=== PATIENT | female | born 1990 | race Caucasian/White ===

== ENCOUNTER 2020-09-14 17:36 | Emergency (ER) | payer OTHER, SELFPAY ==
[2020-09-14 17:45] VITALS: BP 144/86; PULSE 124; RESP 22; TEMP 36.8; O2SAT 98
--- NOTE | 2020-09-14 17:53 | DI.RAD.S_ITS ---
PROCEDURE: XR CHEST 1V INDICATIONS: Shortness of breath TECHNIQUE: One view of the chest was acquired. COMPARISON: None. FINDINGS: Surgical changes and devices: None. Lungs and pleura: Lungs are clear. No pleural effusions or pneumothorax. Mediastinum: Mediastinal contours appear normal. Heart size is normal. Bones and chest wall: No suspicious bony lesions. Overlying soft tissues appear unremarkable. IMPRESSION: The inspiratory volume is reduced and the lungs are clear considering this circumstance. However, it is possible that a mild alveolar infiltration pattern is superimposed. Dictated by: Aj Pelayo M.D. on 09/14/2020 at 18:39 Approved by: Aj Pelayo M.D. on 09/14/2020 at 18:40
--- NOTE | 2020-09-14 18:02 | ED.SOB ---
HPI - SOB/Dyspnea General Chief Complaint: Shortness of Breath/Dyspnea Stated Complaint: Procedure Done Wed/SOB, High Resting HR Time Seen by Provider: 09/14/20 17:52 Source: patient Mode of arrival: Ambulatory Limitations: no limitations History of Present Illness HPI Narrative: 30F nonsmoker with a history of kidney stones presents with the chief complaint of a sudden onset shortness of breath, chest discomfort, and rapid heart rate. She becomes more short of breath with minimal exertion and cannot complete a sentence. She had a ureteral stent placed at [facility] 5 days ago. She denies any history of blood clot or cancer. She uses control but it is Mirena. She denies fever or chills. She's had a mild dry cough. She denies fever or chills. She denies pain or swelling in either leg. She states the chest discomfort is very vague and cannot pinpoint a location. She states all of her symptoms started together. Her pain is mild and diffuse and not worsened with exertion, motion, or deep breath. MD Complaint: shortness of breath, cough and chest pain Onset (ago): hour(s) Context: other Severity: moderate Consistency/Duration: constant Relieving factors: nothing Exacerbating factors: exertion Known history of: other Associated symptoms: chest pain Treatment prior to arrival: none Related Data Home oxygen amount: none Review of Systems Constitutional Constitutional: Denies chills, Denies fatigue, Denies fever(s), Denies frequent falls, Denies lethargy and Denies weakness Eyes Eyes: Denies change in vision, Denies eye discharge, Denies irritation and Denies loss of vision ENT Ears, Nose, Mouth, and Throat: Denies change in voice, Denies dizziness, Denies neck pain, Denies sore throat and Denies throat swelling Cardiovascular Cardiovascular: Denies chest pain, Reports rapid heart rate, Reports lightheadedness, Reports palpitations, Reports dyspnea, Reports dyspnea on exertion and Denies orthopnea Respiratory Respiratory: Denies cough, Reports dyspnea, Reports dyspnea on exertion and Denies wheezing Gastrointestinal Gastrointestinal: Denies abdominal pain, Denies change in bowel habits, Denies diarrhea, Denies nausea and Denies vomiting Musculoskeletal Musculoskeletal: Denies neck pain and Denies numbness Integumentary/Breasts Skin/Breast: Denies pruritus, Denies erythema, Denies rash and Denies wounds Neurologic Neurologic: Denies behavioral changes, Denies confusion, Denies dizziness, Denies frequent falls, Denies loss of vision, Denies numbness and Denies weakness Psychiatric Psychiatric: Denies anxiety, Denies behavioral changes, Denies confusion, Denies depression, Denies homicidal ideation and Denies suicidal ideation Endocrine Endocrine: Denies fatigue, Denies flushing and Reports palpitations Hematologic/Lymphatic Hematologic/Lymphatic: Denies easy bruising Allergic/Immunologic Allergic/Immunologic: Denies urticaria, Denies throat swelling and Denies wheezing Patient History Social History Smoking Status: Never smoker Smoking Status: Never smoker alcohol intake frequency: 0-2 drinks per day Substance Use Type: does not use Exam Narrative Exam Narrative: GENERAL: [30] year old patient appears stated age. Well-nourished, well-developed patient, in moderate distress. Breathless, conversational dyspnea, speaking 4-5 word sentences HEAD: Atraumatic. Normocephalic. EYES: Pupils equal round and reactive. Extraocular motions intact. No scleral icterus. No injection or drainage. ENT: Nose without bleeding, purulent drainage. Throat without erythema, tonsillar hypertrophy or exudate. Airway patent. NECK: Trachea midline. Non tender CARDIOVASCULAR: Tachycardic but regular without murmurs, gallops, or rubs. RESPIRATORY: Clear to auscultation. Breath sounds equal bilaterally. No wheezes, rales, or rhonchi. Tachypnea, increased work of breathing. GASTROINTESTINAL: Abdomen soft, non-tender, nondistended. EXTREMITIES: No edema or joint tenderness. BACK: Nontender without deformity or crepitance. No flank tenderness. NEURO: AOx3. SKIN: No rash or erythema of visible areas Initial Vital Signs Initial Vital Signs: Vital Signs Temperature 98.2 F 09/14/20 17:45 Pulse Rate 124 H 09/14/20 17:45 Respiratory Rate 22 09/14/20 17:45 Blood Pressure 144/86 H 09/14/20 17:45 Pulse Oximetry 98 09/14/20 17:45 Course Orders Ordered: ED Orders 09/14/20 17:52 Complete Blood Count AUTO DIFF Stat Comprehensive Metabolic Panel Stat D Dimer Stat Lactate (Lactic Acid) Stat Lipase Stat Procalcitonin Stat 09/14/20 17:53 XR chest 1V Stat Test Urine Stat Urinalysis and Microscopic Stat EKG-12 Lead Stat 09/14/20 18:24 Blood Culture Stat 09/14/20 18:25 COVID19 Stat 09/14/20 18:26 CT angio chest PE protocol Stat Discontinued Medications Sodium Chloride (Normal Saline 0.9%) 1,000 mls @ 1,000 mls/hr IV BOLUS ONE Stop: 09/14/20 18:51 Last Admin: 09/14/20 18:24 Dose: 1,000 mls/hr Documented by: VANDANA Reevaluation(s) Reevaluation #1: HR down to the 110s with fluid, minimal improvement in dyspnea Despite negative dimer her story and presentation are highly suspiscious for PE and after discussion with patient regarding risks and benefits we agree that the risk of CTA (radiation, IV contrast, cost) is heavily outweighed by the benefit of potentially diagnosing a life threatening condition such as PE or pericardial effusion. She understands this risk and agrees with CT. Reevaluation #2: patient feeling significant improvement after fluids. HR down to the upper 80s. No further dyspnea or significant work of breathing Vital Signs Vital signs: Vital Signs - 8 hr 09/14/20 17:45 09/14/20 18:27 09/14/20 18:30 Temperature 98.2 F Pulse Rate 124 H 104 H 98 H Respiratory Rate 22 Blood Pressure 144/86 H Pulse Oximetry 98 96 98 MDM - SOB/Dyspnea Lab Data Result diagrams: 09/14/20 17:52 09/14/20 17:52 Labs: Lab Results 09/14/20 09/14/20 09/14/20 Range/Units 17:52 17:52 17:52 WBC 7.4 (4.5-11.0) X10^3/uL RBC 4.45 (4.0-5.2) X10^6/uL Hgb 13.7 (12.0-16.0) g/dL Hct 40.2 (36-46) % MCV 90.3 (80-100) fL MCH 30.7 (26-34) PG MCHC 34.0 (30-36) % RDW 12.6 (11.6-14.8) % Plt Count 324 (150-400) X10^3/uL Neut % (Auto) 64.9 (50-75) % Lymph % (Auto) 25.7 (25-40) % [place] % (Auto) 7.1 (3-14) % Eos % (Auto) 1.3 L (2-4) % Baso % (Auto) 1.0 (0-2) % Neut # (Auto) 4800 (1153-2771) /uL Lymph # (Auto) 1900 (2191-9644) /uL [place] # (Auto) 500 (0-900) /uL Eos # (Auto) 100 (0-450) /uL Baso # (Auto) 100 (0-100) /uL D-Dimer (<230) ng/mL Sodium 137 (137-145) mmol/L Potassium 3.9 (3.4-5.1) mmol/L Chloride 102 (98-107) mmol/L Carbon Dioxide 31 (22-32) mmol/L BUN 13 (7-17) mg/dL Creatinine 0.76 (0.52-1.04) mg/dL Estimated GFR > 60.0 (>60) mL/min BUN/Creatinine Ratio 17.1 (6-22) Glucose 122 H (70-100) mg/dL Lactate (0.7-2.1) mmol/L Calcium 9.3 (8.4-10.2) mg/dL Total Bilirubin 0.3 (0.2-1.3) mg/dL AST 23 (14-36) IU/L ALT 12 (<35) IU/L Alkaline Phosphatase 49 (38-126) U/L Total Protein 7.2 (6.3-8.2) g/dL Albumin 4.1 (3.5-5.0) g/dL Globulin 3.1 (1.7-4.1) g/dL Albumin/Globulin Ratio 1.3 (1.0-2.8) Lipase 39 (23-300) U/L Procalcitonin < 0.05 (<0.5) ng/mL SARS-CoV-2 (PCR) (Negative) 09/14/20 09/14/20 09/14/20 Range/Units 17:52 17:52 18:25 WBC (4.5-11.0) X10^3/uL RBC (4.0-5.2) X10^6/uL Hgb (12.0-16.0) g/dL Hct (36-46) % MCV (80-100) fL MCH (26-34) PG MCHC (30-36) % RDW (11.6-14.8) % Plt Count (150-400) X10^3/uL Neut % (Auto) (50-75) % Lymph % (Auto) (25-40) % [place] % (Auto) (3-14) % Eos % (Auto) (2-4) % Baso % (Auto) (0-2) % Neut # (Auto) (5169-0718) /uL Lymph # (Auto) (2269-8011) /uL [place] # (Auto) (0-900) /uL Eos # (Auto) (0-450) /uL Baso # (Auto) (0-100) /uL D-Dimer 221 (<230) ng/mL Sodium (137-145) mmol/L Potassium (3.4-5.1) mmol/L Chloride (98-107) mmol/L Carbon Dioxide (22-32) mmol/L BUN (7-17) mg/dL Creatinine (0.52-1.04) mg/dL Estimated GFR (>60) mL/min BUN/Creatinine Ratio (6-22) Glucose (70-100) mg/dL Lactate 1.6 (0.7-2.1) mmol/L Calcium (8.4-10.2) mg/dL Total Bilirubin (0.2-1.3) mg/dL AST (14-36) IU/L ALT (<35) IU/L Alkaline Phosphatase (38-126) U/L Total Protein (6.3-8.2) g/dL Albumin (3.5-5.0) g/dL Globulin (1.7-4.1) g/dL Albumin/Globulin Ratio (1.0-2.8) Lipase (23-300) U/L Procalcitonin (<0.5) ng/mL SARS-CoV-2 (PCR) Negative (Negative) Imaging Data CT scan - chest: Radiologist's Impression: [address] [id number] Scan ReportSigned Patient: Yolanda Narvaez EMR#: [id number]: 1990Acct:[id number]/Sex: te of Service: 09/14/20Loc: EDAccession Number: [id number] Procedure: CT angio chest PE protocol Ordering Provider: Wander Das D.O. PROCEDURE: CT ANGIO CHEST PE PROTOCOL INDICATIONS: sudden SOB, tachycardia, recent procedure TECHNIQUE: After the administration of intravenous contrast, 2 mm thick sections acquired from the pulmonary apices to the posterior costophrenic angles. 3-dimensional maximum intensity projection (MIP) coronal and sagittal reformats were then acquired through the thorax. For radiation dose reduction, the following was used: automated exposure control, adjustment of mA and/or kV according to patient size. COMPARISON: [facility], , XR CHEST 1V, 09/14/2020, 18:03. FINDINGS: Image quality: Excellent. Pulmonary arteries: Pulmonary arteries are normal in size, and demonstrate no intraluminal filling defects to suggest central pulmonary embolism. Lungs and pleura: Lungs are clear considering reduced inspiratory volume. No pleural effusions or pneumothorax. Central and peripheral airways are patent. Mediastinum: Heart size is normal, without pericardial effusion. No mediastinal or hilar adenopathy. Thoracic aorta is normal in caliber and enhancement. Esophagus is normal in caliber, without hiatal hernia. Bones and chest wall: No suspicious bony lesions. Ribs and thoracic spine appear intact throughout. Thyroid gland appears normal where well seen. No axillary or supraclavicular adenopathy. Abdomen: Visualized upper abdominal solid organs appear normal in the early arterial phase of enhancement. IMPRESSION: No pulmonary embolus seen, reduced inspiratory volume as was previously the case during chest plain film imaging earlier today. This crowds the bronchovascular markings. Dictated by: Aj Pelayo M.D. on 09/14/2020 at 18:57 Approved by: Aj Pelayo M.D. on 09/14/2020 at 19:00 Chest x-ray: Radiologist's Impression: [address] [id number] ReportSigned Patient: Yolanda Narvaez EMR#: [id number]: [id number]:[id number]/Sex: 30 / FDate of Service: 09/14/20Loc: EDAccession Number: [id number] Procedure: XR chest 1V Ordering Provider: Esdras Ledesma D.O. PROCEDURE: XR CHEST 1V INDICATIONS: Shortness of breath TECHNIQUE: One view of the chest was acquired. COMPARISON: None. FINDINGS: Surgical changes and devices: None. Lungs and pleura: Lungs are clear. No pleural effusions or pneumothorax. Mediastinum: Mediastinal contours appear normal. Heart size is normal. Bones and chest wall: No suspicious bony lesions. Overlying soft tissues appear unremarkable. IMPRESSION: The inspiratory volume is reduced and the lungs are clear considering this circumstance. However, it is possible that a mild alveolar infiltration pattern is superimposed. Dictated by: Aj Pelayo M.D. on 09/14/2020 at 18:39 Approved by: Aj Pelayo M.D. on 09/14/2020 at 18:40 ECG Data Interpretation: EKG demonstrates sinus tachycardia with a rate of 112. And free of any signs of ischemia or ectopy. No ST segmental elevation or depression. No T wave inversions MDM Narrative Medical decision making narrative: Multiple etiologies for patient's symptoms considered including: [Pulmonary embolism versus pericardial effusion versus dysrhythmia versus anemia versus dehydration versus anxiety versus other] Patient's symptoms improved over duration of stay with above-stated therapies. Findings and discharge diagnosis discussed with patient/family followed by verbalization of understanding Return precautions discussed with patient/family whom verbalize understanding. Discharge Plan Departure Patient Disposition: Home Clinical Impression: Dyspnea Qualifiers: Dyspnea type: unspecified Qualified Code(s): R06.00 - Dyspnea, unspecified Instructions: DI for Shortness of Breath Activity Restrictions/Additional Instructions: *You have been diagnosed with [acute shortness of breath and rapid heart rate resolved. Your lab work and CT scan are very reassuring. There is no evidence of pulmonary embolism or other life-threatening diagnosis at this time] *What to do: * continue to take medications as directed *Follow up with your primary care provider in 2-3 days, call for an appointment. Let them know you were seen in the Emergency Department and that we ask that you be seen in follow up *Return to ER if you should have any new, worsening or concerning symptoms Referrals: Shravan Spain [Primary Care Provider] -
[2020-09-14 18:09] LABS: Add Manual Diff / Slide Review NO; Basophils Absolute Auto 100 /uL (0-100); Eosinophils Absolute Auto 100 /uL (0-450); Eosinophils Percent Auto 1.3 % (2-4); Hematocrit 40.2 % (36-46); Hemoglobin 13.7 g/dL (12.0-16.0); Lymphocytes Absolute Auto 1900 /uL (1100-4500); Lymphocytes Percent Auto 25.7 % (25-40); Mean Corpuscular Hemoglobin 30.7 PG (26-34); Mean Corpuscular Volume 90.3 fL (80-100); Monocytes Absolute Auto 500 /uL (0-900); Monocytes Percent Auto 7.1 % (3-14); Neutrophils Absolute Auto 4800 /uL (1500-7000); Neutrophils Percent Auto 64.9 % (50-75); Platelet Count 324 X10^3/uL (150-400); Red Blood Cell Count 4.45 X10^6/uL (4.0-5.2); Red Cell Distribution Width 12.6 % (11.6-14.8); White Blood Cell Count 7.4 X10^3/uL (4.5-11.0)
[2020-09-14 18:15] LABS: D Dimer 221 ng/mL (<230)
[2020-09-14 18:16] LABS: Alanine Aminotransferase 12 IU/L (<35); Albumin 4.1 g/dL (3.5-5.0); Albumin Globulin Ratio 1.3 (1.0-2.8); Alkaline Phosphatase 49 U/L (38-126); Aspartate Aminotransferase 23 IU/L (14-36); BUN Creatinine Ratio 17.1 (6-22); Bilirubin Total 0.3 mg/dL (0.2-1.3); Blood Urea Nitrogen 13 mg/dL (7-17); Calcium 9.3 mg/dL (8.4-10.2); Carbon Dioxide 31 mmol/L (22-32); Chloride 102 mmol/L (98-107); Estimated Glomerular Filt Rate > 60.0 mL/min (>60); Globulin 3.1 g/dL (1.7-4.1); Glucose 122 mg/dL (70-100); HEMOLYSIS 56 (0-50); Lipase 39 U/L (23-300); Potassium 3.9 mmol/L (3.4-5.1); Sodium 137 mmol/L (137-145); Total Protein 7.2 g/dL (6.3-8.2)
[2020-09-14 18:17] LABS: Lactate (Lactic Acid) 1.6 mmol/L (0.7-2.1)
[2020-09-14] MEDS: SODIUM CHLORIDE 0.9% 1,000 ML 1000 ML IV (18:24)
--- NOTE | 2020-09-14 18:26 | DI.CT.S_ITS ---
PROCEDURE: CT ANGIO CHEST PE PROTOCOL INDICATIONS: sudden SOB, tachycardia, recent procedure TECHNIQUE: After the administration of intravenous contrast, 2 mm thick sections acquired from the pulmonary apices to the posterior costophrenic angles. 3-dimensional maximum intensity projection (MIP) coronal and sagittal reformats were then acquired through the thorax. For radiation dose reduction, the following was used: automated exposure control, adjustment of mA and/or kV according to patient size. COMPARISON: [facility], CR, XR CHEST 1V, 09/14/2020, 18:03. FINDINGS: Image quality: Excellent. Pulmonary arteries: Pulmonary arteries are normal in size, and demonstrate no intraluminal filling defects to suggest central pulmonary embolism. Lungs and pleura: Lungs are clear considering reduced inspiratory volume. No pleural effusions or pneumothorax. Central and peripheral airways are patent. Mediastinum: Heart size is normal, without pericardial effusion. No mediastinal or hilar adenopathy. Thoracic aorta is normal in caliber and enhancement. Esophagus is normal in caliber, without hiatal hernia. Bones and chest wall: No suspicious bony lesions. Ribs and thoracic spine appear intact throughout. Thyroid gland appears normal where well seen. No axillary or supraclavicular adenopathy. Abdomen: Visualized upper abdominal solid organs appear normal in the early arterial phase of enhancement. IMPRESSION: No pulmonary embolus seen, reduced inspiratory volume as was previously the case during chest plain film imaging earlier today. This crowds the bronchovascular markings. Dictated by: Aj Pelayo M.D. on 09/14/2020 at 18:57 Approved by: Aj Pelayo M.D. on 09/14/2020 at 19:00
[2020-09-14 18:27] VITALS: PULSE 104; O2SAT 96
[2020-09-14 18:30] VITALS: PULSE 98; O2SAT 98
[2020-09-14 18:33] LABS: Procalcitonin < 0.05 ng/mL (<0.5)
[2020-09-14 18:52] LABS: COVID19 -Nasal RAPID Negative (Negative)
[2020-09-14 19:44] VITALS: BP 112/73; PULSE 87; RESP 14; O2SAT 98
== END 2020-09-14 19:44 | disposition home or self-care (01) ==
PROVIDERS: Emergency Medicine; Emergency Provider Emergency Medicine
DX: R06.00 Dyspnea, unspecified (principal); R07.9 Chest pain, unspecified; R00.0 Tachycardia, unspecified; R05 Cough; Z97.5 Presence of (intrauterine) contraceptive device; R42 Dizziness and giddiness; R00.2 Palpitations; Z20.822 Contact with and (suspected) exposure to COVID-19
CPT/HCPCS: 36415; 71045; 71275; 80053; 83605; 83690; 84145; 85025; 85379; 87040; 87635; 93005; 93010; 96360; 99284; C9803; Q9967

== ENCOUNTER 2020-09-22 11:11 | Emergency (ER) | payer OTHER, SELFPAY ==
[2020-09-22] VITALS (13 sets, daily range): BP systolic 99–119; BP diastolic 60–85; PULSE 112–141; RESP 12–36; TEMP 38.1–38.6; O2SAT 94–100
--- NOTE | 2020-09-22 11:20 | DI.RAD.S_ITS ---
PROCEDURE: XR CHEST 1V INDICATIONS: suspected sepsis TECHNIQUE: One view of the chest was acquired. COMPARISON: [facility], CR, XR CHEST 1V, 09/14/2020, 18:03. FINDINGS: Surgical changes and devices: None. Lungs and pleura: An incomplete inspiratory result is noted, causing a crowded appearance to the lung markings. No focal infiltrates are seen. No pneumothorax or significant pleural effusions are seen. Mediastinum: Mediastinal contours appear normal. Heart size is normal. Bones and chest wall: No suspicious bony lesions. Overlying soft tissues appear unremarkable. IMPRESSION: Low lung volumes, without a focal infiltrate seen on this portable chest study. If there is clinical concern for a developing pulmonary process, a short-term followup chest series (with PA and lateral views, performed in deep inspiration) is suggested for further evaluation. Dictated by: Sinan Bach M.D. on 09/22/2020 at 10:54 Approved by: Sinan Bach M.D. on 09/22/2020 at 10:54
[2020-09-22 11:46] LABS: COVID19 -Nasal RAPID Negative (Negative)
[2020-09-22] MEDS: ACETAMINOPHEN 325 MG TABLET 975 MG PO (11:50)
[2020-09-22] MEDS: SODIUM CHLORIDE 0.9% 1,000 ML 1000 ML IV ×2 (11:50→13:11)
[2020-09-22 11:51] LABS: Alanine Aminotransferase 20 IU/L (<35); Albumin 4.3 g/dL (3.5-5.0); Albumin Globulin Ratio 1.2 (1.0-2.8); Alkaline Phosphatase 68 U/L (38-126); Aspartate Aminotransferase 24 IU/L (14-36); BUN Creatinine Ratio 13.4 (6-22); Bilirubin Total 0.4 mg/dL (0.2-1.3); Blood Urea Nitrogen 13 mg/dL (7-17); Calcium 9.2 mg/dL (8.4-10.2); Carbon Dioxide 27 mmol/L (22-32); Chloride 99 mmol/L (98-107); Estimated Glomerular Filt Rate > 60.0 mL/min (>60); Globulin 3.5 g/dL (1.7-4.1); Glucose 121 mg/dL (70-100); HEMOLYSIS < 15 (0-50); Lipase 50 U/L (23-300); Potassium 3.7 mmol/L (3.4-5.1); Sodium 134 mmol/L (137-145); Total Protein 7.8 g/dL (6.3-8.2)
[2020-09-22 11:52] LABS: Add Manual Diff / Slide Review NO; Basophils Absolute Auto 100 /uL (0-100); Basophils Percent Auto 0.7 % (0-2); Eosinophils Absolute Auto 0 /uL (0-450); Eosinophils Percent Auto 0.1 % (2-4); Hematocrit 40.6 % (36-46); Hemoglobin 14.1 g/dL (12.0-16.0); Lymphocytes Absolute Auto 1500 /uL (1100-4500); Lymphocytes Percent Auto 15.1 % (25-40); Mean Corpuscular HGB Conc 34.7 % (30-36); Mean Corpuscular Hemoglobin 31.1 PG (26-34); Mean Corpuscular Volume 89.6 fL (80-100); Monocytes Absolute Auto 1100 /uL (0-900); Monocytes Percent Auto 11.2 % (3-14); Neutrophils Absolute Auto 7300 /uL (1500-7000); Neutrophils Percent Auto 72.9 % (50-75); Platelet Count 264 X10^3/uL (150-400); Red Blood Cell Count 4.53 X10^6/uL (4.0-5.2); Red Cell Distribution Width 12.8 % (11.6-14.8)
[2020-09-22 11:53] LABS: Lactate (Lactic Acid) 1.2 mmol/L (0.7-2.1)
[2020-09-22] MEDS: KETOROLAC 60 MG/2 ML VIAL 15 MG IV (12:02)
[2020-09-22 12:08] LABS: Procalcitonin 0.28 ng/mL (<0.5)
--- NOTE | 2020-09-22 12:17 | ED_ITS ---
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 to 103 F with nonproductive cough, terrible headache, body aches, fatigue and malasie with chills and mild short of breath. She reports dizziness during ambulation but contributes to headache. Patient recently had renal stent surgery at [facility] on 09/10/20 for kidney stone measuring 1-2 mm since February last year which did not moved and caused pain. Patient denies known exposure to COVID. Patient denies chest pain, sore throat, runny nose, losing sense of smell or taste. Patient reports urinary frequency but this has been expected and there's no change. Was evaluated for tachycardia and dyspnea in emergency room 5 days postop for renal stent which was negative. Patient states she has been having rapid heart rate according to her Apple watch, resting heart rate in 100 to 130s with activities up to 150s and during sleep runs in 80s to 90s since the surgery. Dr. Velasquez from [facility] called to give heads up for patient's arrival for an evaluation for pyelonephritis, COVID. Related Data Home Medications Medication Instructions Recorded Confirmed tamsulosin 0.4 mg PO BEDTIME 09/22/20 09/22/20 Allergies Allergy/AdvReac Type Severity Reaction Status Date / Time No Known Drug Allergies Allergy Verified 09/22/20 11:23 Patient History <Luis LopezMARANDA hillman - Last Filed: 09/22/20 13:53> Social History Smoking Status: Never smoker Smoking Status: Never smoker alcohol intake frequency: 0-2 drinks per day Substance Use Type: does not use Exam <Luis JohnJAMILA hillmanP - Last Filed: 09/22/20 13:53> Narrative Exam Narrative: GEN: Alert, oriented x 3, ill appearing and but well nourished with frequent dry cough during exam. Head: Normal cephalic, atraumatic. No scalp or temporal tenderness, palpable mass or rash. EYES: Pupils are equal, round, and reactive to light and accommodation. Extraocular muscles are intact bilaterally. There is no subconjunctival hemorrhage, exudate and sclera non-icteric. ENT: Bilateral auditory canals and tympanic membranes clear. Hearing grossly intact. Nose without bleeding, purulent discharge or deviation. Facial sinuses nontender to palpate. Mucous membrane moist, no mucosal lesion. Throat without erythema, tonsillar hypertrophy or exudate. Uvula in midline, airway patent. Neck: Trachea in midline. No JVD, non-tender without lymphadenopathy. No masses or thyroid megaly. Supple, non-tender and no meningeal signs. CARDIAC: Normal regular tachy rate without murmurs, gallops, or rubs. No chest wall tenderness. No peripheral edema, cyanosis or pallor. Capillary refill is less than 2 seconds. RESPIRATORY: Lungs are decreased. Frequent non productive dry cough without wheezes, rales, or rhonchi. No stridor but with mild tachypnea. ABD: Abdomen soft, nontender and non-distended. No guarding or rebound tenderness to palpate. Bowel sounds are normal in all 4 quadrants. There is no palpable masses or organomegaly. EXT: Full painless ROM of all extremities with no loss of sensation, strength, effusion or edema. SKIN: Warm, dry,flushed appearance. No erythema, lesions or rash over visible areas. BACK: Nontender without deformity or crepitance. No flank tenderness. NEUROLOGICAL: Alert and oriented to place, time and person. Sensation and motor function intact bilaterally. No facial droops, dysphasia. PSYCHIATRIC: Good judgement and reason, without hallucinations, abnormal affect or abnormal behaviors during the examination. Patient is not suicidal. Initial Vital Signs Initial Vital Signs: Vital Signs Temperature 100.6 F H 09/22/20 11:15 Pulse Rate 133 H 09/22/20 11:15 Respiratory Rate 24 09/22/20 11:15 Blood Pressure 106/75 09/22/20 11:15 Pulse Oximetry 99 09/22/20 11:15 <Wander Das, DO - Last Filed: 09/22/20 19:06> Initial Vital Signs Initial Vital Signs: Vital Signs Temperature 100.6 F H 09/22/20 11:15 Pulse Rate 133 H 09/22/20 11:15 Respiratory Rate 24 09/22/20 11:15 Blood Pressure 106/75 09/22/20 11:15 Pulse Oximetry 99 09/22/20 11:15 Scores <JAMILA OlivasP - Last Filed: 09/22/20 13:53> GCS [place] coma scale eye opening: Spontaneous [place] coma scale verbal response: Orientated [place] coma scale motor response: Obey commands [place] coma scale total score: 15 PERC Score Age greater than or equal to 50 years: No Heart rate greater than or equal to 100 bpm: Yes Room Air O2 Sat less than 95%: No Unilateral leg swelling: No Recent trauma or surgery: Yes Hemoptysis: No Prior PE or DVT: No Hormone Use: Yes Total PERC Score: 3 qSOFA Altered Mental Status (GCS <15): No Respiratory rate greater than/equal to 22: Yes Systolic blood pressure less than or equal to 100: No qSOFA Total: 1 0-1 Not High Risk 1-3 High risk Course <JAMILA OlivasP - Last Filed: 09/22/20 13:53> Orders Ordered: ED Orders 09/22/20 11:20 XR chest 1V Stat COVID19 Stat 09/22/20 11:27 Complete Blood Count AUTO DIFF Stat Comprehensive Metabolic Panel Stat D Dimer Stat Lactate (Lactic Acid) Stat Lipase Stat Partial Thromboplastin Time Stat Procalcitonin Stat Prothrombin Time INR Stat 09/22/20 11:54 Respiratory Panel (Film Array) Stat Urine Culture Stat Urine Microscopic Stat 09/22/20 12:02 Blood Culture Stat 09/22/20 12:17 EKG-12 Lead Stat Discontinued Medications Acetaminophen (Acetaminophen 325 Mg Tablet) 975 mg PO NOW ONE Stop: 09/22/20 11:41 Last Admin: 09/22/20 11:50 Dose: 975 mg Documented by: OGCHEESTEVAN Sodium Chloride (Normal Saline 0.9%) 1,000 mls @ 1,000 mls/hr IV BOLUS ONE Stop: 09/22/20 12:19 Last Infusion: 09/22/20 13:10 Dose: 0 mls/hr Documented by: Admin: 09/22/20 11:50 Dose: 1,000 mls/hr Documented by: DIEGO Sodium Chloride (Normal Saline 0.9%) 1,000 mls @ 1,000 mls/hr IV BOLUS ONE Stop: 09/22/20 12:28 Last Admin: 09/22/20 13:11 Dose: 1,000 mls/hr Documented by: REJI Ceftriaxone Sodium/Dextrose (Rocephin) 1 gm in 50 mls @ 100 mls/hr IV NOW ONE Stop: 09/22/20 13:16 Last Admin: 09/22/20 13:11 Dose: 100 mls/hr Documented by: REJI Sodium Chloride (Normal Saline 0.9%) 1,000 mls @ 200 mls/hr IV BOLUS ONE Stop: 09/22/20 17:49 Last Admin: 09/22/20 13:10 Dose: 200 mls/hr Documented by: REJI Ketorolac Tromethamine (Ketorolac 60 Mg/2 Ml Vial) 15 mg IV NOW ONE Stop: 09/22/20 11:57 Last Admin: 09/22/20 12:02 Dose: 15 mg Documented by: DIEGO Levalbuterol HCl (Levalbuterol 1.25 Mg/0.5 Ml Neb) 1.25 mg INH NOW ONE Stop: 09/22/20 12:22 Last Admin: 09/22/20 12:29 Dose: 1.25 mg Documented by: RAHEEM Reevaluation(s) Reevaluation #1: Patient reports feeling hot. Temp increased to 101.5 F. Discussed elevated D dimer to 632 from 221 (09/14/20) and with given tachycardiac, short of breath, recent surgical procedure that patient is high risk for pulmonary embolism with the patient and she agrees with proceeding with CTA for PE test. Patient reports cough improved after the Xopenex neb treatment and loosen up. Time: 12:58 Vital Signs Vital signs: Vital Signs - 8 hr 09/22/20 11:15 09/22/20 11:23 09/22/20 11:30 Temperature 100.6 F H Pulse Rate 133 H 121 H 141 H Respiratory Rate 24 Blood Pressure 106/75 110/85 Pulse Oximetry 99 100 99 09/22/20 11:45 09/22/20 12:00 09/22/20 12:05 Temperature Pulse Rate 124 H 123 H 119 H Respiratory Rate 22 29 H Blood Pressure 119/71 Pulse Oximetry 99 99 99 09/22/20 12:15 09/22/20 12:30 09/22/20 12:34 Temperature Pulse Rate 121 H 112 H 116 H Respiratory Rate 36 H 31 H 20 Blood Pressure 99/60 Pulse Oximetry 97 96 97 09/22/20 12:45 09/22/20 12:54 09/22/20 13:00 Temperature 101.5 F H Pulse Rate 121 H 115 H Respiratory Rate 22 12 Blood Pressure 109/66 Pulse Oximetry 94 94 09/22/20 13:15 Temperature Pulse Rate 113 H Respiratory Rate 25 H Blood Pressure Pulse Oximetry 96 <Wander Das, - Last Filed: 09/22/20 19:06> Orders Ordered: ED Orders 09/22/20 11:20 XR chest 1V Stat COVID19 Stat 09/22/20 11:27 Complete Blood Count AUTO DIFF Stat Comprehensive Metabolic Panel Stat D Dimer Stat Lactate (Lactic Acid) Stat Lipase Stat Partial Thromboplastin Time Stat Procalcitonin Stat Prothrombin Time INR Stat 09/22/20 11:54 Respiratory Panel (Film Array) Stat Urine Culture Stat Urine Microscopic Stat 09/22/20 12:02 Blood Culture Stat 09/22/20 12:17 EKG-12 Lead Stat Discontinued Medications Acetaminophen (Acetaminophen 325 Mg Tablet) 975 mg PO NOW ONE Stop: 09/22/20 11:41 Last Admin: 09/22/20 11:50 Dose: 975 mg Documented by: DIEGO Sodium Chloride (Normal Saline 0.9%) 1,000 mls @ 1,000 mls/hr IV BOLUS ONE Stop: 09/22/20 12:19 Last Infusion: 09/22/20 13:10 Dose: 0 mls/hr Documented by: Admin: 09/22/20 11:50 Dose: 1,000 mls/hr Documented by: OGCHEESTEVAN Sodium Chloride (Normal Saline 0.9%) 1,000 mls @ 1,000 mls/hr IV BOLUS ONE Stop: 09/22/20 12:28 Last Admin: 09/22/20 13:11 Dose: 1,000 mls/hr Documented by: REJI Ceftriaxone Sodium/Dextrose (Rocephin) 1 gm in 50 mls @ 100 mls/hr IV NOW ONE Stop: 09/22/20 13:16 Last Admin: 09/22/20 13:11 Dose: 100 mls/hr Documented by: REJI Sodium Chloride (Normal Saline 0.9%) 1,000 mls @ 200 mls/hr IV BOLUS ONE Stop: 09/22/20 17:49 Last Admin: 09/22/20 13:10 Dose: 200 mls/hr Documented by: REJI Ketorolac Tromethamine (Ketorolac 60 Mg/2 Ml Vial) 15 mg IV NOW ONE Stop: 09/22/20 11:57 Last Admin: 09/22/20 12:02 Dose: 15 mg Documented by: DIEGO Levalbuterol HCl (Levalbuterol 1.25 Mg/0.5 Ml Neb) 1.25 mg INH NOW ONE Stop: 09/22/20 12:22 Last Admin: 09/22/20 12:29 Dose: 1.25 mg Documented by: RAHEEM Vital Signs Vital signs: Vital Signs - 8 hr 09/22/20 11:15 09/22/20 11:23 09/22/20 11:30 Temperature 100.6 F H Pulse Rate 133 H 121 H 141 H Respiratory Rate 24 Blood Pressure 106/75 110/85 Pulse Oximetry 99 100 99 09/22/20 11:45 09/22/20 12:00 09/22/20 12:05 Temperature Pulse Rate 124 H 123 H 119 H Respiratory Rate 22 29 H Blood Pressure 119/71 Pulse Oximetry 99 99 99 09/22/20 12:15 09/22/20 12:30 09/22/20 12:34 Temperature Pulse Rate 121 H 112 H 116 H Respiratory Rate 36 H 31 H 20 Blood Pressure 99/60 Pulse Oximetry 97 96 97 09/22/20 12:45 09/22/20 12:54 09/22/20 13:00 Temperature 101.5 F H Pulse Rate 121 H 115 H Respiratory Rate 22 12 Blood Pressure 109/66 Pulse Oximetry 94 94 09/22/20 13:15 Temperature Pulse Rate 113 H Respiratory Rate 25 H Blood Pressure Pulse Oximetry 96 MDM - Fever <Luis MARANDA Good - Last Filed: 09/22/20 13:53> Differential Diagnosis Differential diagnosis: Likely pyelonephritis, sepsis and other (Covid 19, PE) Medical Records Attestation: I reviewed the patient's medical records. Lab Data Attestation: I reviewed the patient's lab results. Result diagrams: 09/22/20 11:27 09/22/20 11:27 Labs: Lab Results 09/22/20 09/22/20 09/22/20 Range/Units 11:20 11:27 11:27 WBC 10.0 (4.5-11.0) X10^3/uL RBC 4.53 (4.0-5.2) X10^6/uL Hgb 14.1 (12.0-16.0) g/dL Hct 40.6 (36-46) % MCV 89.6 (80-100) fL MCH 31.1 (26-34) PG MCHC 34.7 (30-36) % RDW 12.8 (11.6-14.8) % Plt Count 264 (150-400) X10^3/uL Neut % (Auto) 72.9 (50-75) % Lymph % (Auto) 15.1 L (25-40) % Benzie % (Auto) 11.2 (3-14) % Eos % (Auto) 0.1 L (2-4) % Baso % (Auto) 0.7 (0-2) % Neut # (Auto) 7300 H (9477-3745) /uL Lymph # (Auto) 1500 (0481-8699) /uL Benzie # (Auto) 1100 H (0-900) /uL Eos # (Auto) 0 (0-450) /uL Baso # (Auto) 100 (0-100) /uL PT 16.1 H (10.1-12.7) SECONDS INR 1.4 H (0.9-1.3) APTT 30 (26.4-36.2) SECONDS D-Dimer (<230) ng/mL Sodium (137-145) mmol/L Potassium (3.4-5.1) mmol/L Chloride (98-107) mmol/L Carbon Dioxide (22-32) mmol/L BUN (7-17) mg/dL Creatinine (0.52-1.04) mg/dL Estimated GFR (>60) mL/min BUN/Creatinine Ratio (6-22) Glucose (70-100) mg/dL Lactate (0.7-2.1) mmol/L Calcium (8.4-10.2) mg/dL Total Bilirubin (0.2-1.3) mg/dL AST (14-36) IU/L ALT (<35) IU/L Alkaline Phosphatase (38-126) U/L Total Protein (6.3-8.2) g/dL Albumin (3.5-5.0) g/dL Globulin (1.7-4.1) g/dL Albumin/Globulin Ratio (1.0-2.8) Lipase (23-300) U/L Procalcitonin (<0.5) ng/mL Urine RBC (0-5/HPF) Urine WBC (0-5/HPF) Ur Squamous Epith Cells (0-5/HPF) Urine Bacteria (None) Urine Mucus (Negative) Ur Culture Indicated? Chlamy pneumoniae PCR (Not Detect) Adenovirus (PCR) (Not Detect) B.parapertussis DNA PCR (Not Detect) Coronavirus OC43 (PCR) (Not Detect) Coronavirus HKU1 (PCR) (Not Detect) Coronavirus 229E (PCR) (Not Detect) SARS-CoV-2 (PCR) Negative (Negative) Coronavirus NL63 (PCR) (Not Detect) Human Metapneumovir PCR (Not Detect) Influenza Type A (PCR) (Not Detect) Influenza Type B (PCR) (Not Detect) M. pneumoniae (PCR) (Not Detect) Parainfluenza 1 (PCR) (Not Detect) Parainfluenza 2 (PCR) (Not Detect) Parainfluenza 3 (PCR) (Not Detect) Parainfluenza 4 (PCR) (Not Detect) RSV (PCR) (Not Detect) Entero/Rhino (PCR) (Not Detect) 09/22/20 09/22/20 09/22/20 Range/Units 11:27 11:27 11:27 WBC (4.5-11.0) X10^3/uL RBC (4.0-5.2) X10^6/uL Hgb (12.0-16.0) g/dL Hct (36-46) % MCV (80-100) fL MCH (26-34) PG MCHC (30-36) % RDW (11.6-14.8) % Plt Count (150-400) X10^3/uL Neut % (Auto) (50-75) % Lymph % (Auto) (25-40) % Benzie % (Auto) (3-14) % Eos % (Auto) (2-4) % Baso % (Auto) (0-2) % Neut # (Auto) (5442-4192) /uL Lymph # (Auto) (2207-3236) /uL Benzie # (Auto) (0-900) /uL Eos # (Auto) (0-450) /uL Baso # (Auto) (0-100) /uL PT (10.1-12.7) SECONDS INR (0.9-1.3) APTT (26.4-36.2) SECONDS D-Dimer 632 H (<230) ng/mL Sodium 134 L (137-145) mmol/L Potassium 3.7 (3.4-5.1) mmol/L Chloride 99 (98-107) mmol/L Carbon Dioxide 27 (22-32) mmol/L BUN 13 (7-17) mg/dL Creatinine 0.97 (0.52-1.04) mg/dL Estimated GFR > 60.0 (>60) mL/min BUN/Creatinine Ratio 13.4 (6-22) Glucose 121 H (70-100) mg/dL Lactate 1.2 (0.7-2.1) mmol/L Calcium 9.2 (8.4-10.2) mg/dL Total Bilirubin 0.4 (0.2-1.3) mg/dL AST 24 (14-36) IU/L ALT 20 (<35) IU/L Alkaline Phosphatase 68 (38-126) U/L Total Protein 7.8 (6.3-8.2) g/dL Albumin 4.3 (3.5-5.0) g/dL Globulin 3.5 (1.7-4.1) g/dL Albumin/Globulin Ratio 1.2 (1.0-2.8) Lipase 50 (23-300) U/L Procalcitonin 0.28 (<0.5) ng/mL Urine RBC (0-5/HPF) Urine WBC (0-5/HPF) Ur Squamous Epith Cells (0-5/HPF) Urine Bacteria (None) Urine Mucus (Negative) Ur Culture Indicated? Chlamy pneumoniae PCR (Not Detect) Adenovirus (PCR) (Not Detect) B.parapertussis DNA PCR (Not Detect) Coronavirus OC43 (PCR) (Not Detect) Coronavirus HKU1 (PCR) (Not Detect) Coronavirus 229E (PCR) (Not Detect) SARS-CoV-2 (PCR) (Negative) Coronavirus NL63 (PCR) (Not Detect) Human Metapneumovir PCR (Not Detect) Influenza Type A (PCR) (Not Detect) Influenza Type B (PCR) (Not Detect) M. pneumoniae (PCR) (Not Detect) Parainfluenza 1 (PCR) (Not Detect) Parainfluenza 2 (PCR) (Not Detect) Parainfluenza 3 (PCR) (Not Detect) Parainfluenza 4 (PCR) (Not Detect) RSV (PCR) (Not Detect) Entero/Rhino (PCR) (Not Detect) 09/22/20 09/22/20 Range/Units 11:54 11:54 WBC (4.5-11.0) X10^3/uL RBC (4.0-5.2) X10^6/uL Hgb (12.0-16.0) g/dL Hct (36-46) % MCV (80-100) fL MCH (26-34) PG MCHC (30-36) % RDW (11.6-14.8) % Plt Count (150-400) X10^3/uL Neut % (Auto) (50-75) % Lymph % (Auto) (25-40) % Benzie % (Auto) (3-14) % Eos % (Auto) (2-4) % Baso % (Auto) (0-2) % Neut # (Auto) (8539-0145) /uL Lymph # (Auto) (5266-8893) /uL Benzie # (Auto) (0-900) /uL Eos # (Auto) (0-450) /uL Baso # (Auto) (0-100) /uL PT (10.1-12.7) SECONDS INR (0.9-1.3) APTT (26.4-36.2) SECONDS D-Dimer (<230) ng/mL Sodium (137-145) mmol/L Potassium (3.4-5.1) mmol/L Chloride (98-107) mmol/L Carbon Dioxide (22-32) mmol/L BUN (7-17) mg/dL Creatinine (0.52-1.04) mg/dL Estimated GFR (>60) mL/min BUN/Creatinine Ratio (6-22) Glucose (70-100) mg/dL Lactate (0.7-2.1) mmol/L Calcium (8.4-10.2) mg/dL Total Bilirubin (0.2-1.3) mg/dL AST (14-36) IU/L ALT (<35) IU/L Alkaline Phosphatase (38-126) U/L Total Protein (6.3-8.2) g/dL Albumin (3.5-5.0) g/dL Globulin (1.7-4.1) g/dL Albumin/Globulin Ratio (1.0-2.8) Lipase (23-300) U/L Procalcitonin (<0.5) ng/mL Urine RBC 30-100/hpf H (0-5/HPF) Urine WBC 30-100/hpf H (0-5/HPF) Ur Squamous Epith Cells 1-5 /hpf (0-5/HPF) Urine Bacteria Many (>30) H (None) Urine Mucus 2+ H (Negative) Ur Culture Indicated? Specimen cultured Chlamy pneumoniae PCR Not detected (Not Detect) Adenovirus (PCR) Not detected (Not Detect) B.parapertussis DNA PCR Not detected (Not Detect) Coronavirus OC43 (PCR) Not detected (Not Detect) Coronavirus HKU1 (PCR) Not detected (Not Detect) Coronavirus 229E (PCR) Not detected (Not Detect) SARS-CoV-2 (PCR) Not detected (Negative) Coronavirus NL63 (PCR) Not detected (Not Detect) Human Metapneumovir PCR Not detected (Not Detect) Influenza Type A (PCR) Not detected (Not Detect) Influenza Type B (PCR) Not detected (Not Detect) M. pneumoniae (PCR) Not detected (Not Detect) Parainfluenza 1 (PCR) Not detected (Not Detect) Parainfluenza 2 (PCR) Not detected (Not Detect) Parainfluenza 3 (PCR) Not detected (Not Detect) Parainfluenza 4 (PCR) Not detected (Not Detect) RSV (PCR) Not detected (Not Detect) Entero/Rhino (PCR) Not detected (Not Detect) Point of Care Testing Test Results Negative Urine Dip Bedside Urine Glucose Negative Bedside Urine Bilirubin - Negative Bedside Urine Ketone +/- 5 Urine Specific [place] 1.030 Bedside Urine Occult Blood +++ Bedside Urine pH 6.0 Bedside Urine Protein ++ 100 Bedside Urine Urobilinogen - Negative Bedside Urine Nitrite - Negative Bedside Urine Leukocytes ++ 125 Esterase Imaging Data Chest x-ray: Radiologist's Impression: [place] [id number] [place] [id number] ReportSigned Patient: Yolanda Narvaez EMR#: [id number]: [id number]:[id number]/Sex: 30 / FDate of Service: 09/22/20Loc: EDAccession Number: [id number] Procedure: XR chest 1V Ordering Provider: Luis Good PROCEDURE: XR CHEST 1V INDICATIONS: suspected sepsis TECHNIQUE: One view of the chest was acquired. COMPARISON: [facility], XR CHEST 1V, 09/14/2020, 18:03. FINDINGS: Surgical changes and devices: None. Lungs and pleura: An incomplete inspiratory result is noted, causing a crowded appearance to the lung markings. No focal infiltrates are seen. No pneumothorax or significant pleural effusions are seen. Mediastinum: Mediastinal contours appear normal. Heart size is normal. Bones and chest wall: No suspicious bony lesions. Overlying soft tissues a ppear unremarkable. IMPRESSION: Low lung volumes, without a focal infiltrate seen on this portable chest study. If there is clinical concern for a developing pulmonary process, a short-term followup chest series (with PA and lateral views, performed in deep inspiration) is suggested for further evaluation. Dictated by: Sinan Bach M.D. on 09/22/2020 at 10:54 Approved by: Sinan Bach M.D. on 09/22/2020 at 10:54 ECG Data Attestation: I personally reviewed and interpreted this ECG as follows: Prior ECG tracings: available for review Interpretation: Sinus tachycardia rate at 114. Normal [place]. [place] interval 124, QRS duration 96, QT/QTC 290/358. No acute ST changes. 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 She had renal stent procedure on 09/10/20 at [facility] in[facility]hospital. She was also evaluated in emergency room at [facility] 5 days post surgery to rule out pulmonary embolism with dyspnea and tachycardia. There is no leukocytosis. No increase lactate, or pro calcitonin. Unremarkable chemistry test. D-dimer today was increased to 632. PT 16.1 and INR 1.4 with APTT 30. Chest x-ray unremarkable. Urine test shows leuks and micro urine test shows positive for WBC and many bacteria. Patient received 1 L of normal saline. Rocephin 1 g of IV. Treated with Tylenol and Toradol for bodyaches upon arrival. Vital signs temperature to 101.5, remaining tachycardia to 110's. BP from 99/60 to normal tensive. Blood culture and urine culture is pending. Respiratory panel is negative. Kindly Dr. Love at [facility] Emergency room accepted patient's care since we do not have CT cap ability today due to maintenance reasons for CT test to rule out PE and abdomen/pelvis to rule out surgical etiology. <Wander Dsa, - Last Filed: 09/22/20 19:06> Lab Data Labs: Lab Results 09/22/20 09/22/20 09/22/20 Range/Units 11:20 11:27 11:27 WBC 10.0 (4.5-11.0) X10^3/uL RBC 4.53 (4.0-5.2) X10^6/uL Hgb 14.1 (12.0-16.0) g/dL Hct 40.6 (36-46) % MCV 89.6 (80-100) fL MCH 31.1 (26-34) PG MCHC 34.7 (30-36) % RDW 12.8 (11.6-14.8) % Plt Count 264 (150-400) X10^3/uL Neut % (Auto) 72.9 (50-75) % Lymph % (Auto) 15.1 L (25-40) % Benzie % (Auto) 11.2 (3-14) % Eos % (Auto) 0.1 L (2-4) % Baso % (Auto) 0.7 (0-2) % Neut # (Auto) 7300 H (8684-7505) /uL Lymph # (Auto) 1500 (8645-6256) /uL Benzie # (Auto) 1100 H (0-900) /uL Eos # (Auto) 0 (0-450) /uL Baso # (Auto) 100 (0-100) /uL PT 16.1 H (10.1-12.7) SECONDS INR 1.4 H (0.9-1.3) APTT 30 (26.4-36.2) SECONDS D-Dimer (<230) ng/mL Sodium (137-145) mmol/L Potassium (3.4-5.1) mmol/L Chloride (98-107) mmol/L Carbon Dioxide (22-32) mmol/L BUN (7-17) mg/dL Creatinine (0.52-1.04) mg/dL Estimated GFR (>60) mL/min BUN/Creatinine Ratio (6-22) Glucose (70-100) mg/dL Lactate (0.7-2.1) mmol/L Calcium (8.4-10.2) mg/dL Total Bilirubin (0.2-1.3) mg/dL AST (14-36) IU/L ALT (<35) IU/L Alkaline Phosphatase (38-126) U/L Total Protein (6.3-8.2) g/dL Albumin (3.5-5.0) g/dL Globulin (1.7-4.1) g/dL Albumin/Globulin Ratio (1.0-2.8) Lipase (23-300) U/L Procalcitonin (<0.5) ng/mL Urine RBC (0-5/HPF) Urine WBC (0-5/HPF) Ur Squamous Epith Cells (0-5/HPF) Urine Bacteria (None) Urine Mucus (Negative) Ur Culture Indicated? Chlamy pneumoniae PCR (Not Detect) Adenovirus (PCR) (Not Detect) B.parapertussis DNA PCR (Not Detect) Coronavirus OC43 (PCR) (Not Detect) Coronavirus HKU1 (PCR) (Not Detect) Coronavirus 229E (PCR) (Not Detect) SARS-CoV-2 (PCR) Negative (Negative) Coronavirus NL63 (PCR) (Not Detect) Human Metapneumovir PCR (Not Detect) Influenza Type A (PCR) (Not Detect) Influenza Type B (PCR) (Not Detect) M. pneumoniae (PCR) (Not Detect) Parainfluenza 1 (PCR) (Not Detect) Parainfluenza 2 (PCR) (Not Detect) Parainfluenza 3 (PCR) (Not Detect) Parainfluenza 4 (PCR) (Not Detect) RSV (PCR) (Not Detect) Entero/Rhino (PCR) (Not Detect) 09/22/20 09/22/20 09/22/20 Range/Units 11:27 11:27 11:27 WBC (4.5-11.0) X10^3/uL RBC (4.0-5.2) X10^6/uL Hgb (12.0-16.0) g/dL Hct (36-46) % MCV (80-100) fL MCH (26-34) PG MCHC (30-36) % RDW (11.6-14.8) % Plt Count (150-400) X10^3/uL Neut % (Auto) (50-75) % Lymph % (Auto) (25-40) % Benzie % (Auto) (3-14) % Eos % (Auto) (2-4) % Baso % (Auto) (0-2) % Neut # (Auto) (0727-9757) /uL Lymph # (Auto) (4109-8433) /uL Benzie # (Auto) (0-900) /uL Eos # (Auto) (0-450) /uL Baso # (Auto) (0-100) /uL PT (10.1-12.7) SECONDS INR (0.9-1.3) APTT (26.4-36.2) SECONDS D-Dimer 632 H (<230) ng/mL Sodium 134 L (137-145) mmol/L Potassium 3.7 (3.4-5.1) mmol/L Chloride 99 (98-107) mmol/L Carbon Dioxide 27 (22-32) mmol/L BUN 13 (7-17) mg/dL Creatinine 0.97 (0.52-1.04) mg/dL Estimated GFR > 60.0 (>60) mL/min BUN/Creatinine Ratio 13.4 (6-22) Glucose 121 H (70-100) mg/dL Lactate 1.2 (0.7-2.1) mmol/L Calcium 9.2 (8.4-10.2) mg/dL Total Bilirubin 0.4 (0.2-1.3) mg/dL AST 24 (14-36) IU/L ALT 20 (<35) IU/L Alkaline Phosphatase 68 (38-126) U/L Total Protein 7.8 (6.3-8.2) g/dL Albumin 4.3 (3.5-5.0) g/dL Globulin 3.5 (1.7-4.1) g/dL Albumin/Globulin Ratio 1.2 (1.0-2.8) Lipase 50 (23-300) U/L Procalcitonin 0.28 (<0.5) ng/mL Urine RBC (0-5/HPF) Urine WBC (0-5/HPF) Ur Squamous Epith Cells (0-5/HPF) Urine Bacteria (None) Urine Mucus (Negative) Ur Culture Indicated? Chlamy pneumoniae PCR (Not Detect) Adenovirus (PCR) (Not Detect) B.parapertussis DNA PCR (Not Detect) Coronavirus OC43 (PCR) (Not Detect) Coronavirus HKU1 (PCR) (Not Detect) Coronavirus 229E (PCR) (Not Detect) SARS-CoV-2 (PCR) (Negative) Coronavirus NL63 (PCR) (Not Detect) Human Metapneumovir PCR (Not Detect) Influenza Type A (PCR) (Not Detect) Influenza Type B (PCR) (Not Detect) M. pneumoniae (PCR) (Not Detect) Parainfluenza 1 (PCR) (Not Detect) Parainfluenza 2 (PCR) (Not Detect) Parainfluenza 3 (PCR) (Not Detect) Parainfluenza 4 (PCR) (Not Detect) RSV (PCR) (Not Detect) Entero/Rhino (PCR) (Not Detect) 09/22/20 09/22/20 Range/Units 11:54 11:54 WBC (4.5-11.0) X10^3/uL RBC (4.0-5.2) X10^6/uL Hgb (12.0-16.0) g/dL Hct (36-46) % MCV (80-100) fL MCH (26-34) PG MCHC (30-36) % RDW (11.6-14.8) % Plt Count (150-400) X10^3/uL Neut % (Auto) (50-75) % Lymph % (Auto) (25-40) % Benzie % (Auto) (3-14) % Eos % (Auto) (2-4) % Baso % (Auto) (0-2) % Neut # (Auto) (4036-8673) /uL Lymph # (Auto) (2827-0032) /uL Benzie # (Auto) (0-900) /uL Eos # (Auto) (0-450) /uL Baso # (Auto) (0-100) /uL PT (10.1-12.7) SECONDS INR (0.9-1.3) APTT (26.4-36.2) SECONDS D-Dimer (<230) ng/mL Sodium (137-145) mmol/L Potassium (3.4-5.1) mmol/L Chloride (98-107) mmol/L Carbon Dioxide (22-32) mmol/L BUN (7-17) mg/dL Creatinine (0.52-1.04) mg/dL Estimated GFR (>60) mL/min BUN/Creatinine Ratio (6-22) Glucose (70-100) mg/dL Lactate (0.7-2.1) mmol/L Calcium (8.4-10.2) mg/dL Total Bilirubin (0.2-1.3) mg/dL AST (14-36) IU/L ALT (<35) IU/L Alkaline Phosphatase (38-126) U/L Total Protein (6.3-8.2) g/dL Albumin (3.5-5.0) g/dL Globulin (1.7-4.1) g/dL Albumin/Globulin Ratio (1.0-2.8) Lipase (23-300) U/L Procalcitonin (<0.5) ng/mL Urine RBC 30-100/hpf H (0-5/HPF) Urine WBC 30-100/hpf H (0-5/HPF) Ur Squamous Epith Cells 1-5 /hpf (0-5/HPF) Urine Bacteria Many (>30) H (None) Urine Mucus 2+ H (Negative) Ur Culture Indicated? Specimen cultured Chlamy pneumoniae PCR Not detected (Not Detect) Adenovirus (PCR) Not detected (Not Detect) B.parapertussis DNA PCR Not detected (Not Detect) Coronavirus OC43 (PCR) Not detected (Not Detect) Coronavirus HKU1 (PCR) Not detected (Not Detect) Coronavirus 229E (PCR) Not detected (Not Detect) SARS-CoV-2 (PCR) Not detected (Negative) Coronavirus NL63 (PCR) Not detected (Not Detect) Human Metapneumovir PCR Not detected (Not Detect) Influenza Type A (PCR) Not detected (Not Detect) Influenza Type B (PCR) Not detected (Not Detect) M. pneumoniae (PCR) Not detected (Not Detect) Parainfluenza 1 (PCR) Not detected (Not Detect) Parainfluenza 2 (PCR) Not detected (Not Detect) Parainfluenza 3 (PCR) Not detected (Not Detect) Parainfluenza 4 (PCR) Not detected (Not Detect) RSV (PCR) Not detected (Not Detect) Entero/Rhino (PCR) Not detected (Not Detect) Point of Care Testing Test Results Negative Urine Dip Bedside Urine Glucose Negative Bedside Urine Bilirubin - Negative Bedside Urine Ketone +/- 5 Urine Specific [place] 1.030 Bedside Urine Occult Blood +++ Bedside Urine pH 6.0 Bedside Urine Protein ++ 100 Bedside Urine Urobilinogen - Negative Bedside Urine Nitrite - Negative Bedside Urine Leukocytes ++ 125 Esterase Discharge Plan Departure Patient Disposition: [facility] Clinical Impression: Pyelonephritis Prescriptions: No Action tamsulosin 0.4 mg Capsule 0.4 mg PO BEDTIME RF: 0 Referrals: Shravan Spain [Primary Care Provider] - <Wander Das DO - Last Filed: 09/22/20 19:06> Cosign ED Attending Cosignature Attestation: I was immediately available in the department for consultation. This documentation has been reviewed and I agree with assessment and plan. Supervised by Wander Das DO
[2020-09-22 12:25] LABS: INR 1.4 (0.9-1.3); Prothrombin Time 16.1 SECONDS (10.1-12.7)
[2020-09-22 12:27] LABS: Bacteria Urine Many (>30); RBC Urine 30-100/HPF (0-5/HPF); Squamous Epithelial Cell Urine 1-5 /HPF (0-5/HPF); WBC Urine 30-100/HPF (0-5/HPF)
[2020-09-22 12:28] LABS: Culture Indicated Urine Specimen Cultured; Mucus Urine 2+ (Negative)
[2020-09-22 12:28] LABS: PTT Partial Thromboplastin Tim 30 SECONDS (26.4-36.2)
[2020-09-22] MEDS: LEVALBUTEROL 1.25 MG/0.5 ML NEB INH (12:29)
[2020-09-22 12:40] LABS: D Dimer 632 ng/mL (<230)
[2020-09-22] MEDS: SODIUM CHLORIDE 0.9% 1,000 ML 200 ML IV (13:10)
[2020-09-22] MEDS: CEFTRIAXONE 1 GM/50 ML FROZ.PIGGY IV (13:11)
[2020-09-22 13:19] LABS: Adenovirus Not Detected (Not Detect); Coronavirus 229E Not Detected (Not Detect); Coronavirus HKU1 Not Detected (Not Detect); Coronavirus NL 63 Not Detected (Not Detect); Coronavirus OC43 Not Detected (Not Detect); Human Metapneumovirus Not Detected (Not Detect); Human Rhinovirus/Enterovirus Not Detected (Not Detect); Influenza A Not Detected (Not Detect); Influenza B Not Detected (Not Detect); Parainfluenza Virus 1 Not Detected (Not Detect); Parainfluenza Virus 2 Not Detected (Not Detect); Parainfluenza Virus 3 Not Detected (Not Detect); SARS- CoV-2 Not Detected (Not Detecte)
[2020-09-22 13:20] LABS: Bordetella pertussis Not Detected (Not Detect); Chlamydophila pneumoniae Not Detected (Not Detect); Mycoplasma pneumoniae Not Detected (Not Detect); Parainfluenza Virus 4 Not Detected (Not Detect); Respiratory Syncytial Virus Not Detected (Not Detect)
--- NOTE | 2020-09-22 19:49 | PC.NURSE ---
Upon transfer @ 1330 pt had NS infusing (bolus and 200 cc/ hour) and antibiotics.
== END 2020-09-22 13:30 | disposition short-term general hospital (02) ==
PROVIDERS: Emergency Provider Nurse Practitioner Family
DX: N12 Tubulo-interstitial nephritis, not specified as acute or chronic (principal); R05 Cough; R51.9 Headache, unspecified; R06.02 Shortness of breath; R42 Dizziness and giddiness; Z20.822 Contact with and (suspected) exposure to COVID-19
CPT/HCPCS: 36415; 71045; 80053; 81003; 81015; 81025; 83605; 83690; 84145; 85025; 85379; 85610; 85730; 87040; 87086; 87633; 87635; 93005; 93010; 94640; 96361; 96365; 96375; 99282; 99285; C9803; J1885; J7614